=== PATIENT | male | born 1960 | race Caucasian/White ===

== ENCOUNTER 2019-03-13 15:50 | Emergency (ER) | payer OTHER, BC ==
[~2019-03-13] VITALS: Ht 160 cm; Wt 66.7 kg
[2019-03-13 15:58] VITALS: Ht 160 cm; Wt 66.7 kg
[2019-03-13 19:07] LABS: BASOPHIL % 0.9 % (0-2); PLATELET COUNT 170 x10^3mcL (130-400)
[2019-03-13 19:11] LABS: RED CELL DISTRIBUTION WIDTH 16.1 % (11.5-14.5)
[2019-03-13 19:16] LABS: CALCIUM 9.5 mg/dL (8.5-10.1); CARBON DIOXIDE 29.2 mmol/L (21-32); CHLORIDE SERUM 100 mmol/L (98-107); CREATININE SERUM 1.1 mg/dL (0.7-1.3); GFR1 > 60 mL/min; GLUCOSE SERUM 108 mg/dL (74-106); POTASSIUM SERUM 3.9 mmol/L (3.5-5.1); SODIUM SERUM 136 mmol/L (136-145)
[2019-03-13 19:20] LABS: ALBUMIN 3.8 g/dL (3.4-5.0); ALKALINE PHOSPHATASE 126 U/L (46-116); ALT/SGPT 58 U/L (16-63); AST/SGOT 45 U/L (15-37); BILIRUBIN TOTAL 0.54 mg/dL (0.20-1.00); LIPASE 95 IU/L (73-393); TOTAL PROTEIN, SERUM 7.9 g/dL (6.4-8.2)
[2019-03-13] MEDS ORDERED: BETAMETHASONE V (20:33)
[2019-03-13] MEDS ORDERED: FLUOXETINE HYDR20 M2 PO (20:34)
[2019-03-13] MEDS ORDERED: PERIOGARD473 ML (20:34)
[2019-03-13] MEDS ORDERED: NAMENDA10 M2 (20:35)
[2019-03-13] MEDS ORDERED: KETOCONAZOLE2% (20:36)
[2019-03-13] MEDS ORDERED: SYNTHROID0.112 MG PO (20:36)
[2019-03-13] MEDS ORDERED: HYDROXYCHLOROQ200 MG PO (20:37)
[2019-03-13] MEDS ORDERED: [UNRECOGNIZED DRUG - CODE] OP (20:37)
[2019-03-13 23:27] VITALS: BP 110/61
== END 2019-03-13 23:27 | disposition short-term general hospital (02) ==
LOC: ED 15:50
PROVIDERS: Emergency Medicine
DX: S02.622A Fracture of subcondylar process of left mandible, initial encounter for closed fracture (principal); S02.621A Fracture of subcondylar process of right mandible, initial encounter for closed fracture; S09.8XXA Other specified injuries of head, initial encounter; X58.XXXA Exposure to other specified factors, initial encounter; R55 Syncope and collapse; Z88.0 Allergy status to penicillin; Y93.89 Activity, other specified; Y92.89 Other specified places as the place of occurrence of the external cause; Y99.8 Other external cause status
CPT/HCPCS: J2270; Q0092

== ENCOUNTER 2019-04-09 14:52 | Emergency (ER) | payer OTHER, BC | END 2019-04-09 17:10 | disposition home or self-care (01) | LOC: ED 14:52 ==